=== PATIENT | female | born 1975 | race African-American/Black ===

== ENCOUNTER 2016-07-30 11:09 | Emergency (ER) | payer OTHER ==
[~2016-07-30] VITALS: Ht 160 cm; Wt 68.0 kg
[2016-07-30] MEDS ORDERED: ONDANSETRON 4MG ODT PO STA (12:26)
[2016-07-30 12:41] LABS: CLARITY URINE CLOUDY (CLEAR); COLOR URINE YELLOW (YELLOW); GLUCOSE URINE NEGATIVE (NEGATIVE); KETONES URINE TRACE (NEGATIVE); LEUKOCYTE ESTERASE URINE NEGATIVE (NEGATIVE); NITRITE URINE NEGATIVE (NEGATIVE); OCCULT BLOOD URINE NEGATIVE (NEGATIVE); PROTEIN URINE NEGATIVE (NEGATIVE); SPECIFIC GRAVITY URINE 1.017 (1.005-1.030)
[2016-07-30] MEDS ORDERED: KETOROLAC 60MG/2ML VIAL IM ONE (12:45)
[2016-07-30 12:46] LABS: BASOPHILS % 0.8 % (0.0-2.0); EOSINOPHILS % 0.4 % (0.0-5.0); HEMOGLOBIN. 12.8 g/dL (12.0-16.0); LYMPHOCYTES % 41.4 % (20.0-50.0); MEAN CORPUSCULAR HEMOGLOBIN 27.3 pg (28.0-32.0); MEAN CORPUSCULAR VOLUME 81.2 fL (81.0-99.0); MEAN PLATELET VOLUME 7.6 fl (7.4-10.4); MONOCYTES % 4.3 % (2.0-8.0); NEUTROPHILS % 53.1 % (40.0-76.0); PLATELET 237 x1000/uL (130-400); RED BLOOD CELL COUNT 4.68 mill/uL (4.2-5.4); RED CELL DISTRIBUTION WIDTH 14.2 % (11.6-14.6)
[2016-07-30 12:50] LABS: CHLORIDE 103 mEq/L (98-107)
[2016-07-30 12:53] LABS: PROTHROMBIN TIME 10.7 sec
[2016-07-30 12:56] LABS: CARBON DIOXIDE 30 mEq/L (21-32)
[2016-07-30 13:25] LABS: *AMPHETAMINES SCREEN URINE NEGATIVE (NEGATIVE); *BARBITURATES SCREEN URINE NEGATIVE (NEGATIVE); *BENZODIAZEPINES SCREEN URINE NEGATIVE (NEGATIVE); *COCAINE SCREEN URINE NEGATIVE (NEGATIVE); CANNABINOID URINE SCREEN NEGATIVE (NEGATIVE); METHADONE URINE SCREEN NEGATIVE (NEGATIVE); OPIATES URINE SCREEN NEGATIVE (NEGATIVE); PHENCYCLIDINE URINE SCREEN NEGATIVE (NEGATIVE)
[2016-07-30] MEDS ORDERED: METOCLOPRAMIDE HCL 10MG TABLET PO ONE (14:30)
[2016-07-30] MEDS ORDERED: POLYETHYLENE GLYCOL 3350 (17GM) 1 DOSE PACK PO ONE (14:45)
[2016-07-30 15:10] VITALS: BP 121/87
== END 2016-07-30 15:19 | disposition home or self-care (01) ==
LOC: ER 12:15
DX: R10.30 Lower abdominal pain, unspecified (principal); K57.92 Diverticulitis of intestine, part unspecified, without perforation or abscess without bleeding; E05.90 Thyrotoxicosis, unspecified without thyrotoxic crisis or storm
CPT/HCPCS: 36415; 76830; 76856; 80053; 80305; 81001; 81025; 83690; 85025; 85610; 93976; 96372; 99285; J1885; Q0162; Z7610; 96374; J8597

== ENCOUNTER 2016-11-16 10:34 | Inpatient (IN) | payer OTHER ==
[~2016-11-16] VITALS: Ht 160 cm; Wt 70.3 kg
[2016-11-16 14:29] LABS: CHLORIDE 106 mEq/L (98-107)
[2016-11-16 14:31] LABS: BASOPHILS % 0.6 % (0.0-2.0); EOSINOPHILS % 0.8 % (0.0-5.0); HEMATOCRIT. 40.9 % (36.0-48.0); HEMOGLOBIN. 13.7 g/dL (12.0-16.0); LYMPHOCYTES % 34.9 % (20.0-50.0); MEAN CORPUSCULAR VOLUME 83.5 fL (81.0-99.0); MEAN PLATELET VOLUME 8.1 fl (7.4-10.4); MONOCYTES % 5.4 % (2.0-8.0); NEUTROPHILS % 58.3 % (40.0-76.0); PLATELET 278 x1000/uL (130-400); RED BLOOD CELL COUNT 4.89 mill/uL (4.2-5.4)
[2016-11-16 14:39] LABS: CARBON DIOXIDE 24 mEq/L (21-32)
[2016-11-16] MEDS ORDERED: ONDANSETRON HCL 4MG/2ML VIAL IV ONE ×2 (15:00→17:00)
[2016-11-16] MEDS ORDERED: MORPHINE SULFATE 4 MG/ML CPJ (NOT FOR IM USE) IV ONE ×2 (15:00→17:00)
[2016-11-16 15:34] LABS: CLARITY URINE CLEAR (CLEAR); COLOR URINE YELLOW (YELLOW); GLUCOSE URINE NEGATIVE (NEGATIVE); KETONES URINE NEGATIVE (NEGATIVE); LEUKOCYTE ESTERASE URINE NEGATIVE (NEGATIVE); NITRITE URINE NEGATIVE (NEGATIVE); OCCULT BLOOD URINE NEGATIVE (NEGATIVE); PH URINE 5.5 (4.5-8.0); PROTEIN URINE NEGATIVE (NEGATIVE); SPECIFIC GRAVITY URINE 1.018 (1.005-1.030); UROBILINOGEN URINE 0.2 E.U./dL (0.2-1.0)
[2016-11-16] MEDS ORDERED: IOHEXOL-300 100 ML BOTTLE ONE (16:25)
[2016-11-16] MEDS ORDERED: METRONIDAZOLE 500 MG PREMIX 100 ML IV ONE (18:15)
[2016-11-16] MEDS ORDERED: CEFTRIAXONE 1 G PREMIX 50 ML IV ONE (18:15)
[2016-11-16 18:50] VITALS: BP 116/65
[2016-11-16 20:00] VITALS: BP 127/78
[2016-11-16] MEDS: MORPHINE SULFATE 4 MG/ML CPJ (NOT FOR IM USE) IV PRN (21:19)
[2016-11-16] MEDS: DEXT 5%/0.45% NACL 1000ML 1,000 ML IV SCH (21:24)
[2016-11-16 21:25] LABS: HCG SCREEN NEGATIVE
[2016-11-16] MEDS: CEFTRIAXONE 1 G PREMIX 50 ML IV SCH (23:57)
[2016-11-17] VITALS: BP 90/56
[2016-11-17] MEDS: MORPHINE SULFATE 4 MG/ML CPJ (NOT FOR IM USE) IV PRN ×5 (02:12→20:13)
[2016-11-17 04:00] VITALS: BP 95/62
[2016-11-17] MEDS: DEXT 5%/0.45% NACL 1000ML 1,000 ML IV SCH ×2 (06:47→18:06)
[2016-11-17 08:00] VITALS: BP 144/77
[2016-11-17] MEDS: PANTOPRAZOLE SODIUM 40 MG/VIAL IV SCH (10:18)
[2016-11-17 11:41] LABS: EOSINOPHILS % 1.1 % (0.0-5.0); HEMATOCRIT. 39.4 % (36.0-48.0); HEMOGLOBIN. 12.9 g/dL (12.0-16.0); LYMPHOCYTES % 25.4 % (20.0-50.0); MEAN CORPUSCULAR HEMOGLOBIN 27.7 pg (28.0-32.0); MEAN CORPUSCULAR VOLUME 84.3 fL (81.0-99.0); MEAN PLATELET VOLUME 7.8 fl (7.4-10.4); MONOCYTES % 5.4 % (2.0-8.0); NEUTROPHILS % 67.1 % (40.0-76.0); PLATELET 254 x1000/uL (130-400); RED BLOOD CELL COUNT 4.67 mill/uL (4.2-5.4)
[2016-11-17 12:00] VITALS: BP 155/85
[2016-11-17 12:00] LABS: CARBON DIOXIDE 28 mEq/L (21-32); CHLORIDE 106 mEq/L (98-107)
[2016-11-17 16:00] VITALS: BP 108/73
[2016-11-17] MEDS ORDERED: ZOLP10TA6 PO (19:11)
[2016-11-17 20:00] VITALS: BP 118/64
[2016-11-17] MEDS ORDERED: ZOLPIDEM TARTRATE 5MG TABLET PO PRN (20:30)
[2016-11-17] MEDS ORDERED: ONDANSETRON HCL 4MG/2ML VIAL IV PRN (20:45)
[2016-11-17] MEDS: ZOLPIDEM TARTRATE 5MG TABLET PO PRN (21:33)
[2016-11-17] MEDS: CEFTRIAXONE 1 G PREMIX 50 ML IV SCH (22:48)
[2016-11-18] VITALS: BP 97/61
[2016-11-18] MEDS: MORPHINE SULFATE 4 MG/ML CPJ (NOT FOR IM USE) IV PRN ×9 (00:29→21:45)
[2016-11-18 04:00] VITALS: BP 106/68
[2016-11-18] MEDS: DEXT 5%/0.45% NACL 1000ML 1,000 ML IV SCH ×2 (04:09→12:36)
[2016-11-18 08:00] VITALS: BP 111/81
[2016-11-18] MEDS: PANTOPRAZOLE SODIUM 40 MG/VIAL IV SCH (08:04)
[2016-11-18 12:00] VITALS: BP 115/72
[2016-11-18 16:00] VITALS: BP 107/71
[2016-11-18] MEDS: DICYCLOMINE HCL 10MG CAPSULE PO SCH (19:05)
[2016-11-18 20:00] VITALS: BP 102/62
[2016-11-18] MEDS: CEFTRIAXONE 1 G PREMIX 50 ML IV SCH (22:11)
[2016-11-18] MEDS: ZOLPIDEM TARTRATE 5MG TABLET PO PRN (22:12)
[2016-11-19] VITALS: BP 106/69
[2016-11-19] MEDS: DICYCLOMINE HCL 10MG CAPSULE PO SCH ×4 (00:14→18:00)
[2016-11-19] MEDS: MORPHINE SULFATE 4 MG/ML CPJ (NOT FOR IM USE) IV PRN ×7 (00:17→15:41)
[2016-11-19] MEDS: DEXT 5%/0.45% NACL 1000ML 1,000 ML IV SCH ×3 (00:18→18:40)
[2016-11-19 04:00] VITALS: BP 113/71
[2016-11-19 08:00] VITALS: BP 130/80
[2016-11-19] MEDS ORDERED: FAMOTIDINE 20MG/2ML VIAL IV SCH (09:00)
[2016-11-19 12:00] VITALS: BP 120/70
[2016-11-19 16:00] VITALS: BP 118/67
== END 2016-11-19 20:50 | disposition home or self-care (01) | DRG 392 ==
LOC: ER 10:34 → 6EST 16:58 → ENRESERV 17:56
PROVIDERS: ADMIT Internal Medicine; ATTEND Internal Medicine
DX: K57.32 Diverticulitis of large intestine without perforation or abscess without bleeding (principal); Z80.9 Family history of malignant neoplasm, unspecified; Z72.0 Tobacco use; Z82.3 Family history of stroke; Z96.659 Presence of unspecified artificial knee joint; Z79.899 Other long term (current) drug therapy
CPT/HCPCS: 36415; 74177; 80048; 80053; 81003; 81025; 83690; 84703; 85025; 85610; 93970; 96365; 96375; 96376; 99285; 99406; C1893; C9113; J0696; J2270; J2405; J3490; Q9967

== ENCOUNTER 2017-01-17 09:51 | Emergency (ER) | payer OTHER ==
[~2017-01-17] VITALS: Ht 160 cm; Wt 73.0 kg
[~2017-01-17 09:51] MED LIST: ZOLP10TA6 PO
[2017-01-17] MEDS ORDERED: SODIUM CHLORIDE 0.9% 1,000 ML IV ONE (11:40)
[2017-01-17] MEDS ORDERED: KETOROLAC 30MG/ML VIAL IV STA (11:40)
[2017-01-17] MEDS ORDERED: ONDANSETRON HCL 4MG/2ML VIAL IV STA (11:40)
[2017-01-17 11:57] LABS: GLUCOSE URINE NEGATIVE (NEGATIVE); KETONES URINE NEGATIVE (NEGATIVE); LEUKOCYTE ESTERASE URINE NEGATIVE (NEGATIVE); NITRITE URINE NEGATIVE (NEGATIVE); OCCULT BLOOD URINE 2+ (NEGATIVE); PROTEIN URINE 1+ (NEGATIVE); SPECIFIC GRAVITY URINE 1.028 (1.005-1.030); UROBILINOGEN URINE 0.2 E.U./dL (0.2-1.0)
[2017-01-17 11:59] LABS: COLOR URINE YELLOW (YELLOW)
[2017-01-17 12:00] LABS: CLARITY URINE CLEAR (CLEAR)
[2017-01-17 12:14] LABS: BASOPHILS % 0.8 % (0.0-2.0); EOSINOPHILS % 0.7 % (0.0-5.0); HEMATOCRIT. 42.8 % (36.0-48.0); HEMOGLOBIN. 14.3 g/dL (12.0-16.0); LYMPHOCYTES % 33.4 % (20.0-50.0); MEAN CORPUSCULAR HEMOGLOBIN 27.6 pg (28.0-32.0); MEAN CORPUSCULAR VOLUME 82.9 fL (81.0-99.0); MONOCYTES % 9.3 % (2.0-8.0); NEUTROPHILS % 55.8 % (40.0-76.0); PLATELET 259 x1000/uL (130-400); RED BLOOD CELL COUNT 5.17 mill/uL (4.2-5.4); RED CELL DISTRIBUTION WIDTH 13.6 % (11.6-14.6)
[2017-01-17 12:31] LABS: CARBON DIOXIDE 29 mEq/L (21-32); CHLORIDE 105 mEq/L (98-107)
[2017-01-17] MEDS ORDERED: ONDANSETRON HCL 4MG/2ML VIAL IV ONE (12:45)
[2017-01-17] MEDS ORDERED: MORPHINE SULFATE 4 MG/ML CPJ (NOT FOR IM USE) IV ONE (12:45)
[2017-01-17] MEDS ORDERED: IOHEXOL-300 100 ML BOTTLE ONE (13:29)
[2017-01-17 13:34] LABS: *AMPHETAMINES SCREEN URINE NEGATIVE (NEGATIVE); *BARBITURATES SCREEN URINE NEGATIVE (NEGATIVE); *BENZODIAZEPINES SCREEN URINE NEGATIVE (NEGATIVE); *COCAINE SCREEN URINE NEGATIVE (NEGATIVE); CANNABINOID URINE SCREEN NEGATIVE (NEGATIVE); METHADONE URINE SCREEN NEGATIVE (NEGATIVE); OPIATES URINE SCREEN NEGATIVE (NEGATIVE); PHENCYCLIDINE URINE SCREEN NEGATIVE (NEGATIVE)
[2017-01-17 14:25] VITALS: BP 119/67
== END 2017-01-17 14:32 | disposition home or self-care (01) ==
LOC: ER 10:13
DX: K57.90 Diverticulosis of intestine, part unspecified, without perforation or abscess without bleeding (principal)
CPT/HCPCS: 36415; 74177; 80053; 80305; 81001; 81025; 83690; 85025; 96361; 96374; 96375; 96376; 99285; J1885; J2270; J2405; J7030; Q9967; Z7610

== ENCOUNTER 2017-02-04 02:25 | Emergency (ER) | payer OTHER ==
[~2017-02-04] VITALS: Ht 160 cm; Wt 73.0 kg
[2017-02-04] MEDS ORDERED: SODIUM CHLORIDE 0.9% 1,000 ML IV ONE (03:56)
[2017-02-04] MEDS ORDERED: KETOROLAC 30MG/ML VIAL IM ONE (04:00)
[2017-02-04] MEDS ORDERED: ONDANSETRON 4MG ODT PO ONE (04:00)
[2017-02-04 04:32] LABS: BASOPHILS % 1.6 % (0.0-2.0); EOSINOPHILS % 0.6 % (0.0-5.0); HEMATOCRIT. 45.2 % (36.0-48.0); HEMOGLOBIN. 14.9 g/dL (12.0-16.0); LYMPHOCYTES % 39.8 % (20.0-50.0); MEAN CORPUSCULAR HEMOGLOBIN 27.3 pg (28.0-32.0); MEAN CORPUSCULAR VOLUME 82.7 fL (81.0-99.0); MEAN PLATELET VOLUME 7.7 fl (7.4-10.4); MONOCYTES % 4.5 % (2.0-8.0); NEUTROPHILS % 53.5 % (40.0-76.0); PLATELET 318 x1000/uL (130-400); RED BLOOD CELL COUNT 5.47 mill/uL (4.2-5.4); RED CELL DISTRIBUTION WIDTH 14.2 % (11.6-14.6)
[2017-02-04 04:39] LABS: PROTHROMBIN TIME 10.3 sec (9.4-11.6)
[2017-02-04 04:48] LABS: CARBON DIOXIDE 26 mEq/L (21-32); CHLORIDE 109 mEq/L (98-107)
[2017-02-04] MEDS ORDERED: MORPHINE SULFATE 2 MG/ML CPJ (NOT FOR IM USE) IV SCH (05:15)
[2017-02-04 06:23] LABS: CLARITY URINE CLOUDY (CLEAR); COLOR URINE YELLOW (YELLOW); KETONES URINE TRACE (NEGATIVE); LEUKOCYTE ESTERASE URINE NEGATIVE (NEGATIVE); NITRITE URINE NEGATIVE (NEGATIVE); OCCULT BLOOD URINE NEGATIVE (NEGATIVE); PROTEIN URINE 1+ (NEGATIVE); SPECIFIC GRAVITY URINE 1.029 (1.005-1.030)
[2017-02-04] MEDS ORDERED: MORPHINE SULFATE 2 MG/ML CPJ (NOT FOR IM USE) IV ONE (07:45)
[2017-02-04] MEDS ORDERED: ONDANSETRON HCL 4MG/2ML VIAL IV ONE (08:00)
[2017-02-04] MEDS ORDERED: HYDROCODONE/ACETAMINOPHEN 5/325MG TABLET PO SCH (09:15)
[2017-02-04 09:22] VITALS: BP 111/72
== END 2017-02-04 10:30 | disposition home or self-care (01) ==
LOC: ER 03:51
DX: R10.11 Right upper quadrant pain (principal); K57.30 Diverticulosis of large intestine without perforation or abscess without bleeding; M48.061 Spinal stenosis, lumbar region without neurogenic claudication
CPT/HCPCS: 36415; 74176; 80053; 81001; 81025; 85025; 85610; 96361; 96372; 96374; 96375; 96376; 99285; J1885; J2270; J2405; J7030; Q0162; Z7610

== ENCOUNTER 2017-02-23 22:41 | Emergency (ER) | payer OTHER ==
[~2017-02-23] VITALS: Ht 160 cm; Wt 68.0 kg
[2017-02-23] MEDS ORDERED: KETOROLAC 30MG/ML VIAL IV ONE (23:15)
[2017-02-23 23:58] LABS: BASOPHILS % 0.8 % (0.0-2.0); EOSINOPHILS % 0.9 % (0.0-5.0); HEMATOCRIT. 41.6 % (36.0-48.0); HEMOGLOBIN. 13.8 g/dL (12.0-16.0); LYMPHOCYTES % 52.5 % (20.0-50.0); MEAN CORPUSCULAR HEMOGLOBIN 27.2 pg (28.0-32.0); MEAN CORPUSCULAR VOLUME 82.2 fL (81.0-99.0); MEAN PLATELET VOLUME 7.4 fl (7.4-10.4); MONOCYTES % 4.9 % (2.0-8.0); NEUTROPHILS % 40.9 % (40.0-76.0); PLATELET 296 x1000/uL (130-400); RED BLOOD CELL COUNT 5.07 mill/uL (4.2-5.4); RED CELL DISTRIBUTION WIDTH 15.1 % (11.6-14.6)
[2017-02-24] MEDS ORDERED: LIDOCAINE 5% PATCH TOP SCH
[2017-02-24 00:14] LABS: CHLORIDE 106 mEq/L (98-107)
[2017-02-24 00:35] LABS: CLARITY URINE CLEAR (CLEAR); COLOR URINE YELLOW (YELLOW); KETONES URINE NEGATIVE (NEGATIVE); LEUKOCYTE ESTERASE URINE NEGATIVE (NEGATIVE); NITRITE URINE NEGATIVE (NEGATIVE); OCCULT BLOOD URINE NEGATIVE (NEGATIVE); PH URINE 5.5 (4.5-8.0); PROTEIN URINE NEGATIVE (NEGATIVE); SPECIFIC GRAVITY URINE 1.009 (1.005-1.030); UROBILINOGEN URINE 0.2 E.U./dL (0.2-1.0)
[2017-02-24 00:39] LABS: CARBON DIOXIDE 25 mEq/L (21-32)
[2017-02-24 03:15] VITALS: BP 105/75
== END 2017-02-24 03:27 | disposition home or self-care (01) ==
LOC: ER 23:21
DX: G89.29 Other chronic pain (principal); M54.9 Dorsalgia, unspecified; M51.26 Other intervertebral disc displacement, lumbar region; F17.200 Nicotine dependence, unspecified, uncomplicated
CPT/HCPCS: 36415; 72148; 80048; 81003; 81025; 85025; 87040; 96374; 99285; J1885; Z7610

== ENCOUNTER 2018-01-27 05:40 | Inpatient (IN) | payer OTHER ==
[~2018-01-27] VITALS: Ht 160 cm; Wt 72.6 kg
[~2018-01-27 05:40] MED LIST changes: +LACTATED RINGERS 1,000 ML IV SCH; +LEVO500T2 MT; +METR500T PO
[2018-01-27 06:32] LABS: CLARITY URINE TURBID (CLEAR); COLOR URINE DARK YELLOW (YELLOW); KETONES URINE 1+ (NEGATIVE); LEUKOCYTE ESTERASE URINE NEGATIVE (NEGATIVE); NITRITE URINE NEGATIVE (NEGATIVE); OCCULT BLOOD URINE 1+ (NEGATIVE); PROTEIN URINE 2+ (NEGATIVE); SPECIFIC GRAVITY URINE 1.031 (1.005-1.030)
[2018-01-27] MEDS ORDERED: BUPIVACAINE HCL 0.5% (5MG/ML) 50ML ONE (06:44)
[2018-01-27] MEDS ORDERED: INDOCYANINE GREEN 25 MG VIAL IV ONE (06:44)
[2018-01-27] MEDS ORDERED: SKIN ADHESIVE 0.7 GM EA TOP ONE (06:44)
[2018-01-27 06:56] LABS: UCG SCREEN NEGATIVE
[2018-01-27] MEDS ORDERED: MORPHINE SULFATE 2 MG/ML CPJ (NOT FOR IM USE) IV PRN (07:00)
[2018-01-27] MEDS ORDERED: MORPHINE SULFATE 4 MG/ML CPJ (NOT FOR IM USE) IV PRN (07:00)
[2018-01-27] MEDS ORDERED: ONDANSETRON HCL 4MG/2ML INJ IV PRN ×2 (07:00→09:30)
[2018-01-27] MEDS ORDERED: HYDROCODONE/ACETAMINOPHEN 5/325MG TABLET PO PRN ×2 (07:00)
[2018-01-27] MEDS ORDERED: ACETAMINOPHEN 650MG SUPP PR PRN (07:00)
[2018-01-27] MEDS ORDERED: FENTANYL CITRATE/PF 50MCG/ML 2ML VIAL ONE ×3 (07:08→09:34)
[2018-01-27] MEDS ORDERED: PROPOFOL 200MG/20ML VIAL IV ONE (07:09)
[2018-01-27] MEDS ORDERED: METRONIDAZOLE 500 MG PREMIX 100 ML IV ONE (07:09)
[2018-01-27] MEDS ORDERED: MIDAZOLAM HCL 2 MG/2 ML VIAL ONE (07:09)
[2018-01-27] MEDS ORDERED: LEVOFLOXACIN 500MG PREMIX 100 ML IV ONE (07:09)
[2018-01-27] MEDS ORDERED: BUPIVACAINE HCL/PF 0.5% (5MG/ML) 10ML ONE (07:46)
[2018-01-27] MEDS ORDERED: NEOSTIGMINE METHYLSULFATE 1MG/ML 10 ML VIAL ONE (07:53)
[2018-01-27] MEDS ORDERED: GLYCOPYRROLATE 0.2 MG/ML 2ML VIAL ONE (07:54)
[2018-01-27] MEDS ORDERED: TRIA0.252 PO (08:25)
[2018-01-27] MEDS ORDERED: ESMOLOL HCL 10MG/ML 10ML VIAL IV ONE (09:11)
[2018-01-27] MEDS ORDERED: VECURONIUM BROMIDE 10 MG/VIAL IV ONE (09:15)
[2018-01-27] MEDS ORDERED: MEPERIDINE HCL/PF 25MG/ML CPJ IV PRN (09:30)
[2018-01-27] MEDS ORDERED: MORPHINE SULFATE 10 MG/ML CPJ IV PRN (09:30)
[2018-01-27] MEDS ORDERED: METOPROLOL TARTRATE 5MG/5ML VIAL IV ONE (09:34)
[2018-01-27] MEDS ORDERED: LABETALOL HCL 5MG/ML VIAL 20ML IV ONE (10:24)
[2018-01-27] MEDS: FENTANYL CITRATE/PF 50MCG/ML 2ML VIAL IV PRN ×4 (10:38→11:12)
[2018-01-27] MEDS: HYDROMORPHONE HCL/PF 2MG/ML CPJ IV PRN ×5 (11:17→12:16)
[2018-01-27 12:50] VITALS: BP 121/80
[2018-01-27] MEDS: SODIUM CHLORIDE 0.9% INJ 3ML FLUSH IVF SCH ×2 (13:15→21:08)
[2018-01-27 14:06] VITALS: BP 121/80
[2018-01-27] MEDS ORDERED: MORPHINE SULFATE 10MG/5ML ORAL SOLN UDC PO PRN (14:15)
[2018-01-27] MEDS: MORPHINE SULFATE 10MG/5ML ORAL SOLN UDC PO PRN ×3 (14:26→23:27)
[2018-01-27 16:00] VITALS: BP 117/89
[2018-01-27] MEDS: DEXT 5%/0.45% NACL KCL 20MEQ/L 1,000 ML IV SCH (16:45)
[2018-01-27 20:00] VITALS: BP 113/63
[2018-01-27] MEDS: ZOLPIDEM TARTRATE 5MG TABLET PO PRN (20:19)
[2018-01-28] VITALS: BP 113/79
[2018-01-28] MEDS: DEXT 5%/0.45% NACL KCL 20MEQ/L 1,000 ML IV SCH ×3 (02:18→23:18)
[2018-01-28] MEDS: MORPHINE SULFATE 10MG/5ML ORAL SOLN UDC PO PRN ×3 (02:18→08:38)
[2018-01-28 04:00] VITALS: BP 127/86
[2018-01-28] MEDS: SODIUM CHLORIDE 0.9% INJ 3ML FLUSH IVF SCH ×3 (05:09→23:20)
[2018-01-28 08:00] VITALS: BP 101/72
[2018-01-28] MEDS ORDERED: HYDROMORPHONE HCL/PF 2MG/ML CPJ IV PRN (09:00)
[2018-01-28] MEDS: HYDROMORPHONE HCL/PF 2MG/ML CPJ IV PRN ×4 (10:36→21:54)
[2018-01-28] MEDS: ONDANSETRON HCL 4MG/2ML INJ IV PRN ×2 (10:36→17:55)
[2018-01-28 16:00] VITALS: BP 134/92
[2018-01-28 20:00] VITALS: BP 133/92
[2018-01-28] MEDS: ZOLPIDEM TARTRATE 5MG TABLET PO PRN (23:18)
[2018-01-29] VITALS: BP 136/83
[2018-01-29] MEDS: HYDROMORPHONE HCL/PF 2MG/ML CPJ IV PRN ×7 (01:57→21:06)
[2018-01-29 04:00] VITALS: BP 121/93
[2018-01-29] MEDS: SODIUM CHLORIDE 0.9% INJ 3ML FLUSH IVF SCH ×3 (05:45→22:00)
[2018-01-29 08:00] VITALS: BP 120/87
[2018-01-29 12:00] VITALS: BP 138/90
[2018-01-29 17:47] LABS: BASOPHILS % 0.3 % (0.0-2.0); EOSINOPHILS % 0.5 % (0.0-5.0); HEMATOCRIT. 37.9 % (36.0-48.0); HEMOGLOBIN. 12.2 g/dL (12.0-16.0); MEAN CORPUSCULAR HEMOGLOBIN 27.6 pg (28.0-32.0); MEAN CORPUSCULAR VOLUME 85.3 fL (81.0-99.0); MEAN PLATELET VOLUME 8.7 fl (7.4-10.4); MONOCYTES % 3.9 % (2.0-8.0); NEUTROPHILS % 86.3 % (40.0-76.0); PLATELET 189 x1000/uL (130-400); RED BLOOD CELL COUNT 4.44 mill/uL (4.2-5.4); RED CELL DISTRIBUTION WIDTH 13.6 % (11.6-14.6)
[2018-01-29 17:54] LABS: CHLORIDE 95 mEq/L (98-107)
[2018-01-29 20:00] VITALS: BP 123/88
[2018-01-29] MEDS: DEXT 5%/0.45% NACL KCL 20MEQ/L 1,000 ML IV SCH (21:05)
[2018-01-29] MEDS: ZOLPIDEM TARTRATE 5MG TABLET PO PRN (21:05)
[2018-01-30] VITALS: BP 130/95
[2018-01-30] MEDS: HYDROMORPHONE HCL/PF 2MG/ML CPJ IV PRN ×5 (02:21→21:36)
[2018-01-30 04:00] VITALS: BP 119/86
[2018-01-30] MEDS: SODIUM CHLORIDE 0.9% INJ 3ML FLUSH IVF SCH ×2 (06:38→22:00)
[2018-01-30 07:04] LABS: BASOPHILS % 0.2 % (0.0-2.0); EOSINOPHILS % 0.6 % (0.0-5.0); HEMATOCRIT. 37.7 % (36.0-48.0); HEMOGLOBIN. 12.2 g/dL (12.0-16.0); LYMPHOCYTES % 8.3 % (20.0-50.0); MEAN CORPUSCULAR HEMOGLOBIN 27.7 pg (28.0-32.0); MEAN CORPUSCULAR VOLUME 85.1 fL (81.0-99.0); MEAN PLATELET VOLUME 8.7 fl (7.4-10.4); NEUTROPHILS % 85.9 % (40.0-76.0); PLATELET 211 x1000/uL (130-400); RED BLOOD CELL COUNT 4.43 mill/uL (4.2-5.4); RED CELL DISTRIBUTION WIDTH 13.6 % (11.6-14.6)
[2018-01-30 07:31] LABS: CHLORIDE 97 mEq/L (98-107)
[2018-01-30 08:00] VITALS: BP 114/71
[2018-01-30 12:00] VITALS: BP 114/72
[2018-01-30] MEDS: ONDANSETRON HCL 4MG/2ML INJ IV PRN (13:18)
[2018-01-30] MEDS: DEXT 5%/0.45% NACL KCL 20MEQ/L 1,000 ML IV SCH ×2 (13:23→21:35)
[2018-01-30 16:00] VITALS: BP 119/81
[2018-01-30 20:00] VITALS: BP 130/95
[2018-01-30] MEDS: PIPERACILLIN/TAZ 3.375G PREMIX 50 ML IV SCH (21:09)
[2018-01-30] MEDS: ZOLPIDEM TARTRATE 5MG TABLET PO PRN (21:36)
[2018-01-31] VITALS: BP 125/88
[2018-01-31] MEDS: PIPERACILLIN/TAZ 3.375G PREMIX 50 ML IV SCH ×4 (03:17→21:09)
[2018-01-31 04:00] VITALS: BP 135/97
[2018-01-31] MEDS: HYDROMORPHONE HCL/PF 2MG/ML CPJ IV PRN ×6 (04:01→20:55)
[2018-01-31] MEDS: SODIUM CHLORIDE 0.9% INJ 3ML FLUSH IVF SCH ×3 (05:07→22:38)
[2018-01-31 08:00] VITALS: BP 127/93
[2018-01-31] MEDS: DEXT 5%/0.45% NACL KCL 20MEQ/L 1,000 ML IV SCH (08:13)
[2018-01-31 12:00] VITALS: BP 126/93
[2018-01-31 15:36] LABS: BG BASE EXCESS 1.1 mmol/L (-2.0-2.0); BG CARBOXYHEMOGLOBIN 1.4 % (0.5-1.5); BG DEOXYHEMOGLOBIN 4.6 % (0.0-5.0); BG HCO3 ACT 25.8 mmol/L (22.0-26.0); BG METHEMOGLOBIN 0.2 % (0.0-1.5); BG OXYGEN SATURATION 95.3 % (92.0-98.5); BG OXYHEMOGLOBIN 93.8 % (94.0-97.0); BG PCO2 41.3 mmHg (35.0-45.0); BG PH 7.413 (7.350-7.450); BG PO2 74.6 mmHg (75.0-100.0); BG SAMPLE SITE RIGHT RADIAL; BG TOTAL HEMOGLOBIN 12.1 g/dL (12.0-18.0); BG VENT MODE ROOM AIR
[2018-01-31] MEDS ORDERED: LIDOCAINE HCL/PF 1% 2ML VIAL ONE (15:59)
[2018-01-31 16:00] VITALS: BP 124/88
[2018-01-31 20:00] VITALS: BP 132/91
[2018-01-31] MEDS: ONDANSETRON HCL 4MG/2ML INJ IV PRN (21:09)
[2018-01-31 21:15] LABS: BASOPHILS % 0.4 % (0.0-2.0); EOSINOPHILS % 2.3 % (0.0-5.0); HEMATOCRIT. 35.5 % (36.0-48.0); HEMOGLOBIN. 11.5 g/dL (12.0-16.0); LYMPHOCYTES % 26.5 % (20.0-50.0); MEAN CORPUSCULAR HEMOGLOBIN 27.8 pg (28.0-32.0); NEUTROPHILS % 61.8 % (40.0-76.0); PLATELET 243 x1000/uL (130-400); RED BLOOD CELL COUNT 4.13 mill/uL (4.2-5.4); RED CELL DISTRIBUTION WIDTH 13.7 % (11.6-14.6)
[2018-01-31 21:21] LABS: CHLORIDE 103 mEq/L (98-107)
[2018-01-31] MEDS: ZOLPIDEM TARTRATE 5MG TABLET PO PRN (22:37)
[2018-02-01] VITALS: BP 128/88
[2018-02-01] MEDS: DEXT 5%/0.45% NACL KCL 20MEQ/L 1,000 ML IV SCH ×3 (00:09→17:42)
[2018-02-01] MEDS: HYDROMORPHONE HCL/PF 2MG/ML CPJ IV PRN ×7 (01:47→23:49)
[2018-02-01] MEDS: PIPERACILLIN/TAZ 3.375G PREMIX 50 ML IV SCH ×4 (05:09→20:48)
[2018-02-01] MEDS: SODIUM CHLORIDE 0.9% INJ 3ML FLUSH IVF SCH ×3 (06:06→21:42)
[2018-02-01 08:00] VITALS: BP 121/89
[2018-02-01 12:00] VITALS: BP 127/95
[2018-02-01 13:34] VITALS: BP 146/89
[2018-02-01] MEDS: DIPHENHYDRAMINE 50MG/ML VIAL IV PRN ×2 (13:42→22:10)
[2018-02-01] MEDS ORDERED: ACETAMINOPHEN WITH CODEINE 300/30MG TABLET PO PRN (15:15)
[2018-02-01] MEDS ORDERED: HYDROMORPHONE HCL/PF 2MG/ML CPJ IV PRN (15:15)
[2018-02-01] MEDS ORDERED: ACETAMINOPHEN WITH CODEINE 300/30MG TABLET PO NR (15:15)
[2018-02-01] MEDS: NICOTINE 14MG PATCH TD SCH (16:00)
[2018-02-01 16:20] VITALS: BP 125/90
[2018-02-01] MEDS: PANTOPRAZOLE 40MG DR TABLET PO SCH (17:40)
[2018-02-01 20:00] VITALS: BP 122/89
[2018-02-01] MEDS: IPRATROPIUM/ALBUTEROL 0.5-3(2.5)MG/3ML NEB HHN SCH (20:21)
[2018-02-01] MEDS ORDERED: ENOXAPARIN 40MG/0.4ML SYR SUBCUT SCH (21:00)
[2018-02-01] MEDS ORDERED: ZOLPIDEM TARTRATE 5MG TABLET PO PRN (21:00)
[2018-02-02] VITALS: BP 118/89
[2018-02-02] MEDS: IPRATROPIUM/ALBUTEROL 0.5-3(2.5)MG/3ML NEB HHN SCH ×2 (00:59→08:09)
[2018-02-02] MEDS: PIPERACILLIN/TAZ 3.375G PREMIX 50 ML IV SCH ×2 (02:33→10:10)
[2018-02-02] MEDS: DEXT 5%/0.45% NACL KCL 20MEQ/L 1,000 ML IV SCH (02:33)
[2018-02-02] MEDS: HYDROMORPHONE HCL/PF 2MG/ML CPJ IV PRN (02:48)
[2018-02-02 04:00] VITALS: BP 116/80
[2018-02-02] MEDS: SODIUM CHLORIDE 0.9% INJ 3ML FLUSH IVF SCH (05:28)
[2018-02-02 07:31] LABS: HEMOGLOBIN 11.7 g/dL (12.0-16.0); MEAN CORPUSCULAR HEMOGLOBIN 27.8 pg (28.0-32.0); MEAN CORPUSCULAR VOLUME 85.6 fL (81.0-99.0); PLATELET 321 x1000/uL (130-400); RED CELL DISTRIBUTION WIDTH 13.7 % (11.6-14.6)
[2018-02-02 07:41] LABS: CHLORIDE 101 mEq/L (98-107)
[2018-02-02 07:51] LABS: LDL CHOLESTEROL 88 mg/dL (5-100)
[2018-02-02 07:52] LABS: HDL CHOLESTEROL 17 mg/dL (40-59); T4 FREE 1.44 ng/dL (0.76-1.46)
[2018-02-02 08:00] VITALS: BP 127/93
[2018-02-02] MEDS: PANTOPRAZOLE 40MG DR TABLET PO SCH (08:19)
[2018-02-02] MEDS: NICOTINE 14MG PATCH TD SCH (09:00)
[2018-02-02] MEDS ORDERED: IOHEXOL-350 100 ML BOTTLE ONE (11:06)
[2018-02-02] MEDS ORDERED: HYDROCODONE/ACETAMINOPHEN 10/325MG TABLET PO PRN (11:15)
== END 2018-02-02 11:31 | disposition left against medical advice (07) | DRG 331 ==
LOC: OR 05:40 → 6EST 05:41
PROVIDERS: ADMIT Surgery; ATTEND Surgery
PROC: 8E0W4CZ Robotic Assisted Procedure of Trunk Region, Percutaneous Endoscopic Approach (ICD-10-PCS; principal; 2018-01-27)
PROC: 0DBN4ZZ Excision of Sigmoid Colon, Percutaneous Endoscopic Approach (ICD-10-PCS; 2018-01-27)
PROC: 0DBP4ZZ Excision of Rectum, Percutaneous Endoscopic Approach (ICD-10-PCS; 2018-01-27)
PROC: 02HV33Z Insertion of Infusion Device into Superior Vena Cava, Percutaneous Approach (ICD-10-PCS; 2018-02-02)
PROC: B548ZZA Ultrasonography of Superior Vena Cava, Guidance (ICD-10-PCS; 2018-02-02)
PROC: B5181ZA Fluoroscopy of Superior Vena Cava using Low Osmolar Contrast, Guidance (ICD-10-PCS; 2018-02-02)
DX: K57.32 Diverticulitis of large intestine without perforation or abscess without bleeding (principal); I51.7 Cardiomegaly; R79.1 Abnormal coagulation profile; F17.200 Nicotine dependence, unspecified, uncomplicated; Z53.21 Procedure and treatment not carried out due to patient leaving prior to being seen by health care provider
CPT/HCPCS: 36415; 36569; 36600; 71045; 71275; 74018; 76937; 78580; 80048; 80061; 81025; 82375; 82805; 83036; 84439; 84443; 85027; 85379; 86850; 86900; 88307; 93005; 93970; 94640; 97116; 97162; 97530; 97535; C1725; C1893; J1170; J1200; J1650; J1956; J2250; J2270; J2405; J2543; J2704; J2710; J3010; J3490; J7620; Q9957; Q9967

== ENCOUNTER → 2018-04-04 | Outpatient (CLI) | payer OTHER ==
[~2018-04-04] MED LIST changes: +DIATR MEGLU/DIATRIZOATE SOLN 120ML ONE; -LACTATED RINGERS 1,000 ML IV SCH; +TRIA0.252 PO
== END | disposition home or self-care (01) ==
LOC: RAD 09:44
PROVIDERS: ATTEND Surgery
DX: K57.30 Diverticulosis of large intestine without perforation or abscess without bleeding (principal)
CPT/HCPCS: 74270; Q9963

== ENCOUNTER 2018-05-17 15:33 | Inpatient (IN) | payer OTHER ==
[~2018-05-17] VITALS: Ht 170.2 cm; Wt 90.7 kg
[~2018-05-17 15:33] MED LIST changes: -DIATR MEGLU/DIATRIZOATE SOLN 120ML ONE
[2018-05-17] MEDS ORDERED: SODIUM CHLORIDE 0.9% 1000ML BAG (SEPSIS BOLUS) IV ONE (17:30)
[2018-05-17 18:18] LABS: BASOPHILS % 0.9 % (0.0-2.0); EOSINOPHILS % 0.8 % (0.0-5.0); HEMATOCRIT. 48.7 % (36.0-48.0); LYMPHOCYTES % 41.2 % (20.0-50.0); MEAN CORPUSCULAR HEMOGLOBIN 28.1 pg (28.0-32.0); MEAN CORPUSCULAR VOLUME 85.5 fL (81.0-99.0); MEAN PLATELET VOLUME 7.6 fl (7.4-10.4); MONOCYTES % 2.6 % (2.0-8.0); NEUTROPHILS % 54.5 % (40.0-76.0); PLATELET 405 x1000/uL (130-400); RED BLOOD CELL COUNT 5.69 mill/uL (4.2-5.4); RED CELL DISTRIBUTION WIDTH 15.2 % (11.6-14.6)
[2018-05-17 18:24] LABS: CHLORIDE 111 mEq/L (98-107)
[2018-05-17 18:25] LABS: HCG SCREEN NEGATIVE
[2018-05-17 18:26] LABS: PARTIAL THROMBOPLASTIN TIME 27.1 sec (23.4-31.0); PROTHROMBIN TIME 9.9 sec (9.6-11.0)
[2018-05-17] MEDS ORDERED: FAMOTIDINE 20MG/2ML VIAL IV ONE (18:30)
[2018-05-17 18:55] LABS: ETHANOL BLOOD 391 mg/dL
[2018-05-17 20:04] LABS: CLARITY URINE CLOUDY (CLEAR); COLOR URINE YELLOW (YELLOW); KETONES URINE TRACE (NEGATIVE); LEUKOCYTE ESTERASE URINE TRACE (NEGATIVE); NITRITE URINE NEGATIVE (NEGATIVE); OCCULT BLOOD URINE 3+ (NEGATIVE); PROTEIN URINE NEGATIVE (NEGATIVE); SPECIFIC GRAVITY URINE 1.015 (1.005-1.030); UROBILINOGEN URINE 0.2 E.U./dL (0.2-1.0)
[2018-05-17 20:17] LABS: *AMPHETAMINES SCREEN URINE NEGATIVE (NEGATIVE)
[2018-05-17 20:18] LABS: *BARBITURATES SCREEN URINE NEGATIVE (NEGATIVE); *BENZODIAZEPINES SCREEN URINE NEGATIVE (NEGATIVE); *COCAINE SCREEN URINE NEGATIVE (NEGATIVE); METHADONE URINE SCREEN NEGATIVE (NEGATIVE); PHENCYCLIDINE URINE SCREEN NEGATIVE (NEGATIVE)
[2018-05-17 20:19] LABS: CANNABINOID URINE SCREEN NEGATIVE (NEGATIVE); OPIATES URINE SCREEN NEGATIVE (NEGATIVE)
[2018-05-17] MEDS ORDERED: ONDANSETRON HCL 4MG/2ML INJ IV STA (20:25)
[2018-05-17] MEDS ORDERED: MORPHINE SULFATE 4 MG/ML CPJ (NOT FOR IM USE) IV STA (20:25)
[2018-05-17] MEDS ORDERED: LEVOFLOXACIN 750MG PREMIX 150 ML IV ONE (20:30)
[2018-05-17] MEDS ORDERED: METRONIDAZOLE 500 MG PREMIX 100 ML IV ONE (20:30)
[2018-05-18] VITALS (7 sets, daily range): BP systolic 91–126; BP diastolic 52–95
[2018-05-18] MEDS ORDERED: NA PHOS,M-B/NA PHOS,DI-BA ENEMA 118ML PR PRN (00:30)
[2018-05-18] MEDS ORDERED: ACETAMINOPHEN 650MG SUPP PR PRN (00:30)
[2018-05-18] MEDS ORDERED: HYDRALAZINE 20MG/ML VIAL IV PRN (00:30)
[2018-05-18] MEDS ORDERED: ACETAMINOPHEN 650MG/20.3ML UDC GT PRN (00:30)
[2018-05-18] MEDS ORDERED: GUAIFENESIN 200MG/10ML SUGAR FREE UDC PO PRN (00:30)
[2018-05-18] MEDS ORDERED: CLONIDINE 0.1MG TABLET PO PRN (00:30)
[2018-05-18] MEDS ORDERED: DOCUSATE SODIUM 100MG CAPSULE PO PRN (00:30)
[2018-05-18] MEDS ORDERED: IPRATROPIUM/ALBUTEROL 0.5-3(2.5)MG/3ML NEB INH PRN (00:30)
[2018-05-18] MEDS ORDERED: LEVOFLOXACIN 500MG PREMIX 100 ML IV SCH ×2 (00:30→22:00)
[2018-05-18] MEDS ORDERED: ONDANSETRON HCL 4MG/2ML INJ IV PRN ×2 (00:30)
[2018-05-18] MEDS ORDERED: ACETAMINOPHEN 325MG TABLET PO PRN (00:30)
[2018-05-18] MEDS ORDERED: MAGNESIUM/ALUMINUM HYDROXIDE/SIMETHICONE 30ML UDC PO PRN (00:30)
[2018-05-18] MEDS: DEXT 5%/0.45% NACL 1000ML 1,000 ML IV SCH ×2 (02:11→13:14)
[2018-05-18] MEDS: LORAZEPAM 2MG/ML CPJ IV PRN ×2 (02:33→21:12)
[2018-05-18] MEDS: MORPHINE SULFATE 4 MG/ML CPJ (NOT FOR IM USE) IV PRN ×3 (04:55→20:30)
[2018-05-18] MEDS: SODIUM CHLORIDE 0.9% INJ 3ML FLUSH IVF SCH ×3 (05:39→22:00)
[2018-05-18] MEDS ORDERED: METRONIDAZOLE 500 MG PREMIX 100 ML IV SCH (06:00)
[2018-05-18] MEDS: METRONIDAZOLE 500 MG PREMIX 100 ML IV SCH ×3 (06:04→20:28)
[2018-05-18] MEDS: PANTOPRAZOLE SODIUM 40 MG/VIAL IV SCH (08:53)
[2018-05-18] MEDS: FOLIC ACID 1MG TABLET PO SCH (08:54)
[2018-05-18] MEDS: ENOXAPARIN 40MG/0.4ML SYR SUBCUT SCH (09:01)
[2018-05-18] MEDS: THIAMINE HCL 100MG TABLET PO SCH (09:33)
[2018-05-18 17:33] LABS: CHLORIDE 107 mEq/L (98-107)
[2018-05-18 20:08] LABS: BASOPHILS % 0.8 % (0.0-2.0); LYMPHOCYTES % 33.2 % (20.0-50.0); MEAN CORPUSCULAR HEMOGLOBIN 27.9 pg (28.0-32.0); MEAN CORPUSCULAR VOLUME 84.8 fL (81.0-99.0); MEAN PLATELET VOLUME 8.1 fl (7.4-10.4); MONOCYTES % 7.3 % (2.0-8.0); NEUTROPHILS % 57.7 % (40.0-76.0); PLATELET 314 x1000/uL (130-400); RED BLOOD CELL COUNT 4.48 mill/uL (4.2-5.4); RED CELL DISTRIBUTION WIDTH 14.9 % (11.6-14.6)
[2018-05-18 20:13] LABS: HEMOGLOBIN. 12.5 g/dL (12.0-16.0)
[2018-05-19 00:03] VITALS: BP 106/64
[2018-05-19] MEDS: MORPHINE SULFATE 4 MG/ML CPJ (NOT FOR IM USE) IV PRN ×3 (00:08→07:59)
[2018-05-19] MEDS: DEXT 5%/0.45% NACL 1000ML 1,000 ML IV SCH (00:09)
[2018-05-19 04:43] VITALS: BP 124/85
[2018-05-19] MEDS: METRONIDAZOLE 500 MG PREMIX 100 ML IV SCH ×2 (05:10→14:29)
[2018-05-19] MEDS: SODIUM CHLORIDE 0.9% INJ 3ML FLUSH IVF SCH ×2 (05:16→14:29)
[2018-05-19] MEDS: DIPHENHYDRAMINE 50MG/ML VIAL IV PRN ×2 (05:16→08:23)
[2018-05-19 07:26] LABS: BASOPHILS % 0.7 % (0.0-2.0); EOSINOPHILS % 0.9 % (0.0-5.0); HEMATOCRIT. 38.3 % (36.0-48.0); HEMOGLOBIN. 12.5 g/dL (12.0-16.0); LYMPHOCYTES % 31.2 % (20.0-50.0); MEAN CORPUSCULAR HEMOGLOBIN 27.8 pg (28.0-32.0); MEAN CORPUSCULAR VOLUME 84.8 fL (81.0-99.0); MEAN PLATELET VOLUME 8.4 fl (7.4-10.4); NEUTROPHILS % 60.2 % (40.0-76.0); PLATELET 285 x1000/uL (130-400); RED BLOOD CELL COUNT 4.51 mill/uL (4.2-5.4); RED CELL DISTRIBUTION WIDTH 14.6 % (11.6-14.6)
[2018-05-19 07:55] VITALS: BP 117/83
[2018-05-19] MEDS: FOLIC ACID 1MG TABLET PO SCH (08:22)
[2018-05-19] MEDS: PANTOPRAZOLE SODIUM 40 MG/VIAL IV SCH (08:23)
[2018-05-19] MEDS: THIAMINE HCL 100MG TABLET PO SCH (08:23)
[2018-05-19] MEDS: ENOXAPARIN 40MG/0.4ML SYR SUBCUT SCH (08:26)
[2018-05-19] MEDS ORDERED: MAGNESIUM HYDROXIDE 400MG/5ML 30ML UDC PO SCH (08:45)
[2018-05-19 08:55] LABS: CHLORIDE 108 mEq/L (98-107)
[2018-05-19 09:02] LABS: LDL CHOLESTEROL 88 mg/dL (5-100)
[2018-05-19 09:03] LABS: HDL CHOLESTEROL 48 mg/dL (40-59)
[2018-05-19 12:38] VITALS: BP 122/82
[2018-05-19 16:11] VITALS: BP 122/82
[2018-05-19 16:55] VITALS: BP 139/55
== END 2018-05-19 18:15 | disposition home or self-care (01) | DRG 391 ==
LOC: ER 15:33 → 6WST 21:00 → ENRESERV 23:07
PROVIDERS: ADMIT Family Medicine; ATTEND Family Medicine
DX: K57.90 Diverticulosis of intestine, part unspecified, without perforation or abscess without bleeding (principal); G92 Toxic encephalopathy; N39.0 Urinary tract infection, site not specified; F10.129 Alcohol abuse with intoxication, unspecified; N83.202 Unspecified ovarian cyst, left side; Y90.8 Blood alcohol level of 240 mg/100 ml or more; E86.0 Dehydration; G89.29 Other chronic pain; G90.8 Other disorders of autonomic nervous system; Z88.8 Allergy status to other drugs, medicaments and biological substances; Z79.2 Long term (current) use of antibiotics; Z79.899 Other long term (current) drug therapy
CPT/HCPCS: 36415; 71045; 74176; 80061; 80305; 80320; 82962; 83605; 84145; 84484; 84703; 93005; 96374; 99285; C9113; J1200; J1650; J1956; J2060; J2270; J2405; J3490; J7030; J7040; G0480

== ENCOUNTER 2018-12-08 13:19 | Emergency (ER) | payer OTHER ==
[~2018-12-08] VITALS: Ht 165.1 cm; Wt 89.0 kg
[2018-12-08] MEDS ORDERED: METHOCARBAMOL 500MG TABLET PO ONE (16:30)
[2018-12-08] MEDS ORDERED: HYDROCODONE/ACETAMINOPHEN 5/325MG TABLET PO ONE (16:30)
[2018-12-08] MEDS ORDERED: MORPHINE SULFATE 10 MG/ML CPJ IM ONE (18:15)
[2018-12-08 22:04] VITALS: BP 133/94
== END 2018-12-08 22:05 | disposition home or self-care (01) ==
LOC: ER 16:16
DX: M54.5 Low back pain (principal); G89.29 Other chronic pain; Z88.8 Allergy status to other drugs, medicaments and biological substances; Z91.011 Allergy to milk products
CPT/HCPCS: 81025; 96372; 99283; J2270

== ENCOUNTER 2023-01-08 04:53 | Emergency (ER) | payer BC, OTHER ==
[~2023-01-08] VITALS: Ht 160 cm; Wt 69.0 kg
[2023-01-08 04:56] VITALS: O2SAT 100
[2023-01-08 07:06] LABS: BASOPHILS % 0.7 % (0.0-2.0); HEMATOCRIT. 43.7 % (36.0-48.0); HEMOGLOBIN. 14.2 g/dL (12.0-16.0); LYMPHOCYTES % 12.2 % (20.0-50.0); MEAN CORPUSCULAR HGB CONC 32.5 g/dL (31.0-37.0); MEAN CORPUSCULAR VOLUME 86.2 fL (81.0-99.0); MONOCYTES % 4.4 % (2.0-8.0); NEUTROPHILS % 82.7 % (40.0-76.0); PLATELET 303 x1000/uL (130-400); RED BLOOD CELL COUNT 5.08 mill/uL (4.2-5.4); RED CELL DISTRIBUTION WIDTH 14.8 % (11.6-14.6); WHITE BLOOD COUNT 9.9 x1000/uL (4.5-11.0)
[2023-01-08 07:11] LABS: ALANINE AMINOTRANSFERASE 81 IU/L (10-49); ALBUMIN 5.3 g/dL (3.2-4.8); ASPARTATE AMINOTRANSFERASE 100 IU/L (<34); BILIRUBIN TOTAL 0.9 mg/dL (0.1-1.0); CALCIUM 9.7 mg/dL (8.7-10.4); CARBON DIOXIDE 20 mEq/L (21-32); CHLORIDE 101 mEq/L (98-107); CREATININE 0.7 mg/dL (0.6-1.0); GLUCOSE 92 mg/dL (70-105); POTASSIUM 4.4 mEq/L (3.5-5.1); SODIUM 140 mEq/L (136-145); UREA NITROGEN BLOOD 7 mg/dL (9-23)
[2023-01-08 07:24] LABS: PROTEIN TOTAL 8.9 g/dL (6.0-8.3)
[2023-01-08] MEDS ORDERED: TOPUD MT (15:29)
[2023-01-08] MEDS ORDERED: HYDROCODONE/ACETAMINOPHEN 5/325MG TABLET PO ONE (15:30)
[2023-01-08] MEDS ORDERED: HYDROCODONE/ACETAMINOPHEN 5/325MG TABLET PO NR (17:15)
[2023-01-08 17:49] LABS: CLARITY URINE CLOUDY (CLEAR); COLOR URINE DARK YELLOW (YELLOW); GLUCOSE URINE NEGATIVE (NEGATIVE); KETONES URINE 4+ (NEGATIVE); LEUKOCYTE ESTERASE URINE NEGATIVE (NEGATIVE); NITRITE URINE NEGATIVE (NEGATIVE); OCCULT BLOOD URINE 2+ (NEGATIVE); PROTEIN URINE 2+ (NEGATIVE); SPECIFIC GRAVITY URINE 1.035 (1.005-1.030)
[2023-01-08 17:52] LABS: BACTERIA URINE 1+; SQUAMOUS EPITHELIAL CELL URINE 2+ /lpf (RARE/1+)
[2023-01-08 17:58] VITALS: BP 167/106; PULSE 93; RESP 18; TEMP 98.4
== END 2023-01-08 17:59 | disposition home or self-care (01) ==
LOC: ER 04:53
DX: K57.30 Diverticulosis of large intestine without perforation or abscess without bleeding (principal); F10.10 Alcohol abuse, uncomplicated; Z98.890 Other specified postprocedural states; Z88.8 Allergy status to other drugs, medicaments and biological substances; Y90.9 Presence of alcohol in blood, level not specified
CPT/HCPCS: 80053; 81003; 81025; 83690; 85025; 36415; 99283; Z7610 ×5

== ENCOUNTER 2024-11-18 22:51 | Emergency (ER) | payer MEDICAID, OTHER ==
[~2024-11-18] VITALS: Ht 165.1 cm; Wt 78.0 kg
[~2024-11-18 22:51] MED LIST changes: +TOPUD MT; -TRIA0.252 PO; +[UNRECOGNIZED DRUG - CODE] PO
[2024-11-18 23:05] VITALS: O2SAT 98
[2024-11-19 00:17] LABS: BASOPHILS % 1.0 % (0.0-2.0); EOSINOPHILS % 0.5 % (0.0-5.0); HEMATOCRIT. 45.1 % (36.0-48.0); HEMOGLOBIN. 14.7 g/dL (12.0-16.0); LYMPHOCYTES % 58.5 % (20.0-50.0); MEAN PLATELET VOLUME 7.9 fl (7.4-10.4); MONOCYTES % 4.8 % (2.0-8.0); NEUTROPHILS % 35.2 % (40.0-76.0); PLATELET 246 x1000/uL (130-400); RED BLOOD CELL COUNT 5.40 mill/uL (4.2-5.4); RED CELL DISTRIBUTION WIDTH 16.1 % (11.6-14.6)
[2024-11-19 00:30] LABS: CREATININE 0.7 mg/dL (0.6-1.0); UREA NITROGEN BLOOD 7 mg/dL (9-23)
[2024-11-19 00:31] LABS: ASPARTATE AMINOTRANSFERASE 46 IU/L (<34)
[2024-11-19 00:32] LABS: BILIRUBIN DIRECT < 0.1 mg/dL (<=3.0); BILIRUBIN TOTAL 0.4 mg/dL (0.1-1.0); PROTEIN TOTAL 8.0 g/dL (6.0-8.3)
[2024-11-19 00:37] LABS: HCG SCREEN NEGATIVE
[2024-11-19 01:21] LABS: *AMPHETAMINES SCREEN URINE NEGATIVE (NEGATIVE); *BARBITURATES SCREEN URINE NEGATIVE (NEGATIVE); *BENZODIAZEPINES SCREEN URINE PRESUMPTIVE POSITIVE (NEGATIVE); *COCAINE SCREEN URINE NEGATIVE (NEGATIVE); CANNABINOID URINE SCREEN PRESUMPTIVE POSITIVE (NEGATIVE); ECSTASY MDMA SCREEN URINE CONF.TEST INDICATED (NEGATIVE); METHADONE URINE SCREEN NEGATIVE (NEGATIVE); OPIATES URINE SCREEN NEGATIVE (NEGATIVE); PHENCYCLIDINE URINE SCREEN NEGATIVE (NEGATIVE)
[2024-11-19 04:37] LABS: CLARITY URINE CLEAR (CLEAR); COLOR URINE DARK YELLOW (YELLOW); GLUCOSE URINE NEGATIVE (NEGATIVE); KETONES URINE 1+ (NEGATIVE); LEUKOCYTE ESTERASE URINE NEGATIVE (NEGATIVE); NITRITE URINE NEGATIVE (NEGATIVE); OCCULT BLOOD URINE NEGATIVE (NEGATIVE); PH URINE 5.5 (4.5-8.0); PROTEIN URINE 3+ (NEGATIVE); SPECIFIC GRAVITY URINE 1.027 (1.005-1.030); UROBILINOGEN URINE 1.0 E.U./dL (0.2-1.0)
[2024-11-19 06:48] LABS: SQUAMOUS EPITHELIAL CELL URINE 3+ /lpf (RARE/1+)
[2024-11-19 06:49] LABS: BACTERIA URINE TRACE; FINE GRANULAR CASTS URINE 20-30 /lpf; RBC URINE 0-2 /hpf (0-2); WBC URINE 0-2 /hpf (0-2); YEAST URINE 1+
[2024-11-19] MEDS: FLUCONAZOLE 100MG TABLET PO NR (07:00)
[2024-11-19 14:22] VITALS: BP 137/88; PULSE 97; RESP 16; TEMP 36.8; O2SAT 100
== END 2024-11-19 14:25 | disposition short-term general hospital (02) ==
LOC: ER 22:51
DX: T43.212A Poisoning by selective serotonin and norepinephrine reuptake inhibitors, intentional self-harm, initial encounter (principal); R45.851 Suicidal ideations; F10.129 Alcohol abuse with intoxication, unspecified; F19.10 Other psychoactive substance abuse, uncomplicated; B37.9 Candidiasis, unspecified; Z63.4 Disappearance and death of family member; Z20.822 Contact with and (suspected) exposure to COVID-19; Y92.89 Other specified places as the place of occurrence of the external cause; Y90.9 Presence of alcohol in blood, level not specified
CPT/HCPCS: 36415; 80048; 80076; 80305; 80307; 80320; 80329; 81003; 84703; 85025; 87426; 99285; G0480